=== PATIENT | male | born 1980 | race Caucasian/White ===

== ENCOUNTER 2024-05-08 07:39 | Emergency (ER) | payer BC, MEDICAID, OTHER ==
[~2024-05-08] VITALS: Ht 172.7 cm; Wt 81.6 kg
[2024-05-08] MEDS ORDERED: ACET1TAB23 PO (08:27)
[2024-05-08 08:36] VITALS: BP 131/94; O2SAT 98
== END 2024-05-08 08:37 | disposition home or self-care (01) ==
LOC: ER 07:39
DX: S16.1XXA Strain of muscle, fascia and tendon at neck level, initial encounter (principal); Z79.899 Other long term (current) drug therapy; V89.2XXA Person injured in unspecified motor-vehicle accident, traffic, initial encounter; Y93.89 Activity, other specified; Y92.410 Unspecified street and highway as the place of occurrence of the external cause; Y99.8 Other external cause status
CPT/HCPCS: A4606; A4663